=== PATIENT | male | born 1955 | race Caucasian/White ===

== ENCOUNTER → 2019-05-18 07:30 | Outpatient (CLI) | payer OTHER | END | disposition home or self-care (01) | LOC: D.HCCARDIO 07:30 | PROVIDERS: ATTEND Internal Medicine Cardiovascular Disease | DX: I20.9 Angina pectoris, unspecified (principal) ==

== ENCOUNTER 2019-06-17 07:32 | Outpatient (CLI) | payer OTHER ==
[~2019-06-17] VITALS: Ht 193 cm; Wt 125.0 kg
--- NOTE | ~2019-06-17 | HEMODYNAMI ---
PATIENT:GOSIA OWENS MEDICAL RECORD: [id number] : 55 LOCATION:[facility] ADMISSION DATE: 06/17/19 Generatedon:06/17/201911:00 Patient name: GOSIA OWENS Patient #: [id number] SSN: : 1955 Date of study: 06/17/2019 Page: Of Hemodynamic Procedure Report Patient Data Patient Demographics Procedure consent was obtained First Name: GOSIA Gender: Male Last Name: GRACIELA : 1955 Middle Initial: L Age: 63 year(s) Patient #: [id number] Race: Unknown Additional ID: [id number] Contact details Address: [address] State: [place] City: [place] Zip code: [address] Admission Admission Data Admission Date: 06/17/2019 Admission Time: 7:32 Procedure Procedure Types Cath Procedure Diagnostic Procedure LHC LHC w/Coronaries PCI Procedure Coronary Stent Coronary Stent Initial x2 Hemochron ACT Test Procedure Description Procedure Date Procedure Date: 06/17/2019 Procedure Start Time: 10:15 Procedure End Time: 10:55 Procedure Staff Name Function Helio Matias MD Performing Physician Tyrell Sparks RT Monitor Divya Gill RN Nurse Felix Contreras RT Scrub Procedure Data Cath Procedure Fluoroscopy Diagnostic fluoroscopy Total fluoroscopy Time: time: 13.7 min 13.7 min Diagnostic fluoroscopy Total fluoroscopy dose: dose: 1068.89 mGy 1068.89 mGy Contrast Material Contrast Material Type Amount (ml) Isovue 370 249 Entry Location Entry Primary Successful Side Size Upsize Upsize Entry Closure Mahoney ccessful Closure Location (Fr) 1 (Fr) 2 (Fr) Remarks Device Remarks Radial Right 6 Fr Mechanical artery Short Compression Estimated blood loss: 10 ml Diagnostic catheters Device Type Used For End Catheter Placement DIAGNOSTIC [place] 110cm 5 Procedure Fr catheter (004146) Procedure Complications No complications Procedure Medications Medication Administration Route Dosage 0.9% NaCl I.V. 100 ml/hr Oxygen NC 2 l/min Lidocaine 2% added to field 20 Heparin Flush Bag added to field 2 bags (1000units/500ml NS) Radial Cocktail added to field 1 syringe (Verapamil 2mg/Nitro 400mcg/Heparin 1500units) Versed I.V. 2 mg Fentanyl I.V. 100 mcg Heparin Bolus I.V. 4000 units Integrilin (Bolus I.V. 11.3 ml 2mg/ml) Integrilin (Bolus wasted 8.7 ml 2mg/ml) Versed I.V. 2 mg Fentanyl I.V. 100 mcg Versed I.V. 1 mg Versed I.V. 1 mg Plavix P.O. 600 mg Hemodynamics Rest Heart Rate: 66 (bpm) Pressure Samples Time Site Value (mmHg) Purpose Heart Use Rate(bpm) 10:20 AO 121/81(101) Snapshot 75 Snapshots Pre Cath Intra NCS Post Cath Vital Signs Time Heart Resp SPO2 etCO2 NIBP (mmHg) Rhythm Pain Sedation Rate (ipm) (%) (mmHg) Status Level (bpm) 9:51:40 66 17 99 16.7 151/77(107) NSR (Missing) 10(A) 9:56:03 64 14 99 11.4 154/78(104) NSR (Missing) 10(A) 10:00:27 67 16 97 12.9 152/77(113) NSR (Missing) 10(A) 10:04:49 69 10 98 14.4 162/81(122) NSR (Missing) 10(A) 10:09:09 70 13 90 0 155/80(103) NSR (Missing) 10(A) 10:13:31 63 15 94 18.2 146/70(104) NSR (Missing) 10(A) 10:17:56 69 12 95 16.7 149/68(120) NSR (Missing) 10(A) 10:22:22 67 18 92 3.8 120/62(93) NSR (Missing) 9(A) 10:26:36 71 19 95 14.4 126/65(87) NSR (Missing) 9(A) 10:31:45 76 13 97 30.4 143/75(111) NSR (Missing) 9(A) 10:36:03 75 11 96 12.1 157/78(120) NSR (Missing) 9(A) 10:40:21 70 14 96 28.8 152/73(102) NSR (Missing) 9(A) 10:44:39 70 13 97 31.1 151/75(101) NSR (Missing) 9(A) 10:49:02 73 13 97 26.6 166/80(123) NSR (Missing) 9(A) 10:53:24 72 17 99 31.1 167/94(135) NSR (Missing) 10(A) Medications Time Medication Route Dose Verified Delivered Reason Notes Effectiveness by by 9:50:41 0.9% NaCl I.V. 100 Divya Divya used for ml/hr Jairo Jairo rag boiler RN 9:50:52 Oxygen NC 2 l/min Divya Divya for low 02 Jairo Jairo sats RN RN 9:51:17 Lidocaine 2% added 20ml Helio Divya for local to vial Polly Gill anesthetic field RN 9:51:30 Heparin Flush added 2 bags Helio Divya used for Bag to Polly Gill procedure (1000units/500ml field RN NS) 9:55:54 Radial Cocktail added 1 Helio Divya for (Verapamil to syringe Polly Gill vasodilation 2mg/Nitro field RN 400mcg/Heparin 1500units) 10:17:50 Versed I.V. 2 mg Helio Divya for sedation Polly Gill RN 10:17:59 Fentanyl I.V. 100 mcg Helio Divya for sedation Polly Gill RN 10:20:02 Heparin Bolus I.V. 4000 Helio Divya used for verifi ed units Polly Gill procedure with dr ZHANNA matias 10:22:29 Integrilin I.V. 11.3 ml Helio Divya used for verifi ed (Bolus 2mg/ml) Polly Gill procedure with dr ZHANNA matias 10:23:56 Integrilin wasted 8.7 ml Helio Divya used for verifi ed (Bolus 2mg/ml) Polly Gill procedure with dr ZHANNA matias 10:25:16 Versed I.V. 2 mg Helio Divya for sedation Polly Gill RN 10:25:26 Fentanyl I.V. 100 mcg Helio Divya for sedation Tauth MD Jairo RN 10:30:34 Versed I.V. 1 mg Helio Divya for sedation Polly Gill RN 10:35:32 Versed I.V. 1 mg Helio Divya for sedation Polly Gill RN 10:53:30 Plavix P.O. 600 mg Helio Divya Per Polly Gill physician loom operator apprentice Log Time Note 9:23:35 Tyrell MENA(R) sent for patient. Start room use. 9:23:36 Time tracking: Regular hours (M-F 7:00 - 5:00) 9:23:41 Plan of Care:Hemodynamics will remain stable., Cardiac rhythm will remain stable., Comfort level will be maintained., Respiratory function will remain adequate., Patient/ family verbilizes understanding of procedure., Procedure tolerated without complication., Recovers from procedure without complications.. 9:45:27 Patient received from Pre/Post Procedure Room to [facility] 3 Alert and oriented. Tansferred to table in Supine position. 9:45:30 Signed procedure consent form obtained from patient. 9:45:30 Warm blankets applied, and yuriy hugger turned on for patient comfort. 9:45:31 Correct patient and procedure confirmed by team. 9:45:31 ECG and BP/O2 sat monitors applied to patient. 9:50:26 Vital chart was started 9:50:41 0.9% NaCl 100 ml/hr I.V. was administered by Divya Gill RN; used for procedure; Verbal order read back and verified. 9:50:52 Oxygen 2 l/min NC was administered by Divya Gill RN; for low 02 sats; Verbal order read back and verified. 9:51:17 Lidocaine 2% 20ml vial added to field was administered by Divya Gill RN; for local anesthetic; Verbal order read back and verified. 9:51:30 Heparin Flush Bag (1000units/500ml NS) 2 bags added to field was administered by Divya Gill RN; used for procedure; Verbal order read back and verified. 9:55:54 Radial Cocktail (Verapamil 2mg/Nitro 400mcg/Heparin 1500units) 1 syringe added to field was administered by Divya Gill RN; for vasodilation; Verbal order read back and verified. 9:58:48 Baseline sample Acquired. 9:58:54 Rhythm: sinus rhythm 9:58:55 Full Disclosure recording started 9:59:19 H&P Date Dictated: 05/30/2019 Within 30 days and on chart., H&P Addendum completed by physician on day of procedure. (MUST COMPLETE FOR ALL OUTPATIENTS). 9:59:20 Pre-procedure instructions explained to patient. 9:59:21 Pre-op teaching completed and patient verbalized understanding. 9:59:24 Family in patients room. 9:59:25 Patient NPO since Midnight. 9:59:26 Is the patient allergic to Iodine/contrast media? Yes. 9:59:27 Was the patient premedicated? Yes 9:59:29 Is patient on blood thinner?No 10:00:21 ACC The patient was administered the following blood thiners within the last 24 hours: None 10:00:25 Patient diabetic? Yes. 10:00:27 If diabetic: On Metformin? Yes 10:00:29 If on Metformin: Last Dose? 06/15/2019 10:01:23 Previous problem with sedation/anesthesia? No ? 10:01:26 Snore? Yes 10:01:27 Sleep apnea? No 10:01:28 Deviated septum? No 10:01:28 Opens mouth fully? Yes 10:01:29 Sticks out tongue? Yes 10:01:31 Airway obstruction? No ? 10:01:33 Dentures? No ? 10:01:35 Pre procedure: right dorsailis pedis pulse 1+ Palpable, but thready & weak; easily obliterated 10:01:36 Modified Jasvir's test Ulnar < 7 seconds 10:01:39 Patient pain scale 0/10 ?. 10:01:46 IV patent on arrival in left hand with 0.9% NaCl at [facility]. 10:01:56 Lab results completed and on chart. 10:02:19 Stress Test: yes; abnormal inferior and apical 10:02:36 Zero performed for pressure channel P1 10:02:38 Zero performed for pressure channel P1 10:08:37 Risk of Mortality: 0.1 10:08:40 Risk of blood transfusion: 0.1 10:08:43 Risk of CARMEN: 0.6 10:08:49 Right Radial & Right Groin area was prepped with chlora-prep and draped in sterile fashion 10:08:51 Alarms reviewed by Pedro Mendez. 10:08:51 Sharps counted by scrub and verified by R.N. 10:08:55 Use device set Radial Dx or PCI 10:08:57 Tegaderm 4 x 4 (1626W) opened to sterile field. 10:08:58 ACIST Syringe (76883) opened to sterile field. 10:08:59 Medline Cath Pack ([id number]) opened to sterile field. 10:08:59 Bag Decanter (2002S) opened to sterile field. 10:08:59 ACIST Hand Control (81840) opened to sterile field. 10:09:00 ACIST Manifold (28256) opened to sterile field. 10:09:00 MBrace Wrist Support ([id number]) opened to sterile field. 10:09:03 SHEATH 6FR RAIN (9893635) opened to sterile field. 10:09:07 EMERALD Guide Wire (505-919) opened to sterile field. 10:09:58 1) 90+ Normal kidney functon but urine findings or structural abnormalities or genetic trait point to kidney disease. 10:10:01 Maximum allowable contrast dose (3.7 X eGFR X 0.75)250 ml. 10:13:08 Physician arrived 10:13:08 --------ALL STOP TIME OUT------ 10:13:09 Final Timeout: patient, procedure, and site verified with staff and physician. All members of the team are in agreement. 10:13:11 Right Radial & Right Groin site verified by team. 10:13:15 Fire Safety Assessment: A--An alcohol-based skin anteseptic being used preoperatively., C--Open oxygen or nitrous oxide is being used., D--An ESU, laser, or fiber-optic light is being used. 10:13:18 Physical assessment completed. ASA score P 2 - A patient with mild systemic disease as per Helio Matias MD. 10:13:22 Sedation plan: IV Moderate Sedation Medication:Versed, Fentanyl 10:15:44 Procedure started. 10:15:53 Local anesthetic to right radial artery with Lidocaine 2% by Helio Matias MD.INITIAL ACCESS ONLY 10:16:53 A 6 Fr Short sheath was inserted into the Right Radial artery 10:17:12 A DIAGNOSTIC [place] 110cm 5 Fr catheter ([id number]) was advanced over the wire and used for Procedure. 10:17:50 Versed 2 mg I.V. was administered by Divya Gill RN; for sedation; Verbal order read back and verified. 10:17:59 Fentanyl 100 mcg I.V. was administered by Divya Gill RN; for sedation; Verbal order read back and verified. 10:18:34 LV angiography performed. 10:18:37 LV gram done using WEINSTEIN 10:18:41 EF : 50 % 10:18:45 Injector settings: Ml/sec: 5, Volume: 15, 10:19:12 Use device set TAU PCI 10:19:36 LCA angiography performed. 10:20:00 ACCDominant side:Left 10:20:02 Heparin Bolus 4000 units I.V. was administered by Divya Gill RN; used for procedure; verified with dr matias Verbal order read back and verified. 10:20:47 RCA angiography performed. 10:20:52 Catheter removed. 10:21:54 CHOICE PT Extra Support 182cm wire ([id number]) opened to sterile field. 10:21:56 INFLATOR Merit BasixCompak (TI1558) opened to sterile field. 10:22:29 Integrilin (Bolus 2mg/ml) 11.3 ml I.V. was administered by Divya Gill RN; used for procedure; verified with dr matias Verbal order read back and verified. 10:22:45 GUIDE 6FR AR 2.0 SH catheter ([id number]) opened to sterile field. 10:22:50 GUIDE 6FR XBLAD 3.5 catheter ([id number]) opened to sterile field. 10:23:03 6 Fr AR 2 SH guide catheter was inserted over the wire 10:23:12 CPTXS wire advanced. 10:23:15 [place] Verrata Plus pressure wire (68393E) opened to sterile field. 10:23:56 Integrilin (Bolus 2mg/ml) 8.7 ml wasted was administered by Divya Gill RN; used for procedure; verified with dr matias Verbal order read back and verified. 10:24:06 Wire advanced across lesion. 10:24:11 Pre PCI Site: [place] mRCA has 99% stenosis. 10:24:13 ACC Pre-intervention ANDREW Flow is 3. 10:25:16 Versed 2 mg I.V. was administered by Divya Gill RN; for sedation; Verbal order read back and verified. 10:25:26 Fentanyl 100 mcg I.V. was administered by Divya Gill RN; for sedation; Verbal order read back and verified. 10:25:49 Inflate balloon Inflation number: 1 A Mozec Rx 2.5 x 20 balloon was prepped and advanced across the Mid RCA 99, then inflated to 11 MICHELLE for 0:10 (min:sec) -1. 10:25:58 Inflation number: 2 The Mozec Rx 2.5 x 20 balloon was reinflated across the Mid RCA 99, to 11 MICHELLE for 0:10 (min:sec) -1. 10:27:21 Balloon removed over the wire. 10:27:46 Place stent Inflation Number: 3 A RICHARD RX 2.5 x 38 stent ([id number]) was prepped and advanced across the Mid RCA 99. The stent was deployed at 13 MICHELLE for 0:10 (min:sec) 0. 10:28:18 Stent catheter was removed intact over wire. 10:29:19 Place stent Inflation Number: 4 A RICHARD RX 2.5 x 18 stent ([id number]) was prepped and advanced across the Mid RCA 0. The stent was deployed at 15 MICHELLE for 0:10 (min:sec) . 10:29:56 Stent catheter was removed intact over wire. 10:30:34 Versed 1 mg I.V. was administered by Divya Gill RN; for sedation; Verbal order read back and verified. 10:31:10 Place stent Inflation Number: 5 A RICHARD RX 2.5 x 08 stent ([id number]) was prepped and advanced across the Mid RCA 99. The stent was deployed at 17 MICHELLE for 0:10 (min:sec) . 10:31:15 Stent catheter was removed intact over wire. 10:31:15 Wire removed. 10:31:16 Guide catheter removed. 10:31:18 ACC Post-intervention ANDREW Flow is 3. 10:31:25 Post PCI Site: [place] mRCA has 0% stenosis. 10:32:34 6 Fr XBLAD 3.5 guide catheter was inserted over the wire 10:35:32 Versed 1 mg I.V. was administered by Divya Gill RN; for sedation; Verbal order read back and verified. 10:36:51 FFR/IFR wire advanced. 10:39:07 ACT drawn and resulted at 213 seconds. (normal therapeutic range 180-240 seconds). 10:44:43 Wire removed. Unable to wire LAD with IFR wire. Attempting to wire LAD with CPTXS wire. 10:45:32 Wire advanced across lesion. 10:45:48 ACC Pre-intervention ANDREW Flow is 3. 10:46:09 Pre PCI Site: [place] pLAD has 80% stenosis. 10:47:34 Place stent Inflation Number: 1 A RICHARD RX 3.0 x 12 stent ([id number]) was prepped and advanced across the Prox LAD 80. The stent was deployed at 21 MICHELLE for 0:10 (min:sec) 0. 10:47:58 Stent catheter was removed intact over wire. 10:49:21 Inflate balloon Inflation number: 2 A NC EUPHORA 3.5 x 8 balloon ([id number]) was prepped and advanced across the Prox LAD 0, then inflated to 23 MICHELLE for 0:10 (min:sec) . 10:49:48 Balloon removed over the wire. 10:49:49 Wire removed. 10:49:49 Guide catheter removed. 10:49:56 ACC Post-intervention ANDREW Flow is 3. 10:50:03 Post PCI Site: [place] pLAD has 0% stenosis. 10:50:26 ZEPHYR REGULAR TR BAND (540175) opened to sterile field. 10:50:43 Sheath removed intact; hemostasis achieved with Mechanical Compression to the Right Radial artery. 10:50:45 Procedure ended.(Physican Out) 10:51:41 Fluoroscopy time 13.70 minutes. 10:51:51 Flurop Dose total: 1068.89 10:51:51 Fluoroscopy dose: 1068.89 mGy 10:52:01 Dose Area Product 7474.20 mGy/cm. 10:52:06 Contrast amount:Isovue 370 249ml. 10:52:08 Maximum allowable dose exceeded? No. 10:52:10 Sharps counted by scrub and verified by R.N. 10:52:17 [place] band inflated with 15cc of air. 10:52:19 Insertion/operative site no bleeding no hematoma. 10:52:20 Post Procedure Pulses reassessed and unchanged 10:52:22 Post-procedure physical assessment completed. ASA score P 2 - A patient with mild systemic disease as per Helio Matias MD. 10:52:25 Post procedure rhythm: unchanged. 10:52:27 Estimated blood loss: 10 ml 10:52:29 Post procedure instruction explained to patient.Patient verbalizes understanding. 10:52:29 Patient needs reinforcement of post procedure teaching. 10:52:45 Procedure type changed to Cath procedure, Diagnostic procedure, LHC, C w/Coronaries, PCI procedure, Coronary Stent, Coronary Stent Initial x2, Hemochron ACT Test 10:53:30 Plavix 600 mg P.O. was administered by Divya Gill RN; Per physician; Verbal order read back and verified. 10:54:58 Procedure and supply charges have been captured, reviewed, submitted and are correct. 10:55:00 Procedure Complication : No complications 10:55:04 Vital chart was stopped 10:55:07 [facility] Findings: MVD- PCI performed (see procedure note) 10:55:09 Operative report dictated upon procedure completion. 10:55:09 See physician's report for complete and final results. 10:55:11 Report given to Pre/Post Procedure Room. 10:55:15 Patient transfered to Pre/Post Procedure Room with Stretcher. 10:55:17 Procedure ended. 10:55:17 Full Disclosure recording stopped 10:55:33 End room use (Document Last) 10:56:42 End room use (Document Last) 10:57:41 End room use (Document Last) Intervention Summary Intervention Notes Time ActionType Lesion and Equipment Used Action# Pressure Duration Attributes 10:25:49 Inflate Mid RCA Mozec Rx 2.5 x 1 11 00:10 balloon 20 balloon 10:25:58 Reinflate Mid RCA Mozec Rx 2.5 x 2 11 00:10 balloon 20 balloon 10:27:46 Place stent Mid RCA RICHARD RX 2.5 x 3 13 00:10 38 stent ([id number]) 10:29:19 Place stent Mid RCA RICHARD RX 2.5 x 4 15 00:10 18 stent ([id number]) 10:31:10 Place stent Mid RCA RICHARD RX 2.5 x 5 17 00:10 08 stent ([id number]) 10:47:34 Place stent Prox LAD RICHARD RX 3.0 x 1 21 00:10 12 stent ([id number]) 10:49:21 Inflate Prox LAD NC EUPHORA 3.5 2 23 00:10 balloon x 8 balloon ([id number]) Device Usage Item Name Manufacture Quantity Catalog Number Hospital Part Current Minimal Lot# / Charge Number Stock Stock Serial# Code Tegaderm 4 x 4 3M 1 1626W [id number] [id number] [id number] 5 (1626W) ACIST Syringe Acist 1 20044 788390 578098 970708 20 (39667) Medical Systems Inc Medline Cath Medline 1 [id number] 393791 15176 798881 5 Pack ([id number]) Bag Decanter Microtek 1 2001S 131180 06521 154842 5 (2001S) Medical Inc. ACIST Hand Acist 1 03518 751430 216406 505145 5 Control Medical (40102) Systems Inc ACIST Manifold Acist 1 67143 110195 168966 996976 5 (02747) Medical Systems Inc MBrace Wrist Advanced 1 140-0250-00 300352 99607 048399 5 Support Vascular ([id number]) Dynamics SHEATH 6FR Cardinal 1 4814041 210892 3686378 442136 5 RAIN (2531739) [facility] EMERALD Guide Cardinal 1 502-455 587127 985880 369944 5 Wire (502-455) Health DIAGNOSTIC Terumo 1 85-1034 575269 583716 907639 5 [place] 110cm 5 Fr catheter (419124) CHOICE PT [place] 1 [id number] 881979 810014 817141 5 Extra Support Scientific 182cm wire ([id number]) INFLATOR Merit Merit 1 CF6354 933177 821896 589480 15 BasixVIPAARdcBeetle Beats Medical (KB2318) GUIDE 6FR AR Medtronic 1 [id number] 167285 89488 880573 1 2.0 SH catheter ([id number]) GUIDE 6FR Cardinal 1 [id number] 754490 504095 084277 10 XBLAD 3.5 Health catheter (78464163) Mozec Rx 2.5 x Cardinal 1 [id number] 955139 73166 274241 5 [id number] 20 balloon Health RICHARD RX 2.5 x Medtronic 1 [id number] 842232 3589371 253636 5 [id number] 38 stent ([id number]) RICHARD RX 2.5 x Medtronic 1 [id number] 452179 9788719 507189 5 [id number] 18 stent ([id number]) RICHARD RX 2.5 x Medtronic 1 [id number] 504458 3555438 849457 5 [id number] 08 stent ([id number]) RICHARD RX 3.0 x Medtronic 1 [id number] 864717 9686031 126464 5 [id number] 12 stent ([id number]) [place] EUPHORA 3.5 Medtronic 1 [id number] 382567 804558 827816 1 [id number] x 8 balloon ([id number]) ZEPHYR REGULAR Cardinal 1 967997 442071 5464592 705978 5 TR BAND Health (300880) [place] 1 80070Q 969571 [id number] 158273 5 Verrata Plus pressure wire (82752T) Signature Audit [place] Stage Time Signature Unsigned Intra-Procedure 06/17/2019 Tyrell Sparks 10:56:42 AM RT(R) Intra-Procedure 06/17/2019 Divya 10:57:41 AM Jairo CHAO Intra-Procedure 06/17/2019 Helio Matias 11:00:47 AM [place] [id number] [place] [address]
--- NOTE | ~2019-06-17 | OP ---
PATIENT NAME: GOSIA OWENS MEDICAL RECORD: [id number] :55 LOCATION:D.CAT ADMISSION DATE: SURGEON: NESTOR DE SANTIAGO MD DATE OF OPERATION: 06/17/2019 DATE OF SERVICE: 06/17/2019 PROCEDURES: 1. PTCA stent LAD. 2. PTCA stent RCA. 3. Left heart catheterization. 4. Selective coronary angiography. 5. Left ventriculogram. INDICATION: Angina, coronary artery disease, abnormal nuclear stress test. DESCRIPTION OF PROCEDURE IN DETAIL: After informed consent was obtained and after detailed explanation of risks, benefits as well as alternative therapies, the patient elected to proceed with angiogram and angioplasty. The right radial area was prepped and draped in normal sterile fashion. Right radial artery was cannulated via modified Seldinger technique with the placement of 6-Nepali sheath. All catheters exchanged through this sheath. FINDINGS: Left ventriculogram was performed in standard 30-degree WEINSTEIN view, reveals mild global hypokinesis, ejection fraction 40%. SELECTIVE CORONARY ANGIOGRAPHY: 1. Left main is with no significant angiographic disease. 2. Left circumflex has mild irregularities, but no flow-limiting stenosis. 3. The left anterior descending has 80% stenosis in the mid vessel. 4. The right coronary has 95% to 99% stenosis throughout the mid vessel. PTCA STENT OF THE RCA: The stent used was a 2.5 x 38, 2.5 x 8, 2.5 x 18, all Jose stents. Result was 0% residual stenosis. PTCA STENT OF THE LAD: We tried to advance an IFR wire; however, this would not go. Most likely, the stenosis was greater than 80%. We did stent it with a 3.0 x 12 [place] stent. This failed to fully expand it, however high pressure balloon taken to 23 atmospheres with a 3.5 expanded it fully. Result was 0% residual stenosis. OVERALL IMPRESSION: Successful percutaneous transluminal coronary angioplasty stent of the left anterior descending and right coronary artery going from 80% to 95% initial stenosis to 0% residual. TRANSINT:[id number] Voice Confirmation ID: [id number] DOCUMENT ID: [id number] OPERATIVE REPORT [id number] GOSIA OWENS NESTOR DE SANTIAGO MD CC: [id number] DICTATION DATE: 06/17/19 1054 CUSTOMER COMPLAINT SERVICE SUPERVISOR: 06/17/19 1518 DEP CLI 06/17/19 [facility] [address] [place] [address]
[2019-06-17] MEDS ORDERED: MOBIC7.5 MG PO (08:12)
[2019-06-17] MEDS ORDERED: ZOCOR40 MG PO (08:12)
[2019-06-17] MEDS ORDERED: ZIAC 10-6.25 MG1 TAB PO (08:12)
[2019-06-17] MEDS ORDERED: PIOGLITAZONE15 MG PO (08:13)
[2019-06-17] MEDS ORDERED: COZAAR25 MG PO (08:13)
[2019-06-17] MEDS ORDERED: TYLENOL W/CODEI1 TAB PO (08:14)
[2019-06-17] MEDS ORDERED: GLUCOPHAGE1000 MG PO (08:14)
[2019-06-17] MEDS ORDERED: JANUVIA100 MG PO (08:14)
[2019-06-17] MEDS ORDERED: GABAPENTIN300 MG PO (08:15)
[2019-06-17] MEDS ORDERED: BAYER CHEWABLE81 MG PO (08:16)
[2019-06-17] MEDS ORDERED: VALIUM5 MG PO (08:16)
[2019-06-17] MEDS ORDERED: METHOCARBAMOL750 MG NG (08:16)
[2019-06-17] MEDS ORDERED: BIMATOPROST2.5 ML LEFT EYE (08:17)
[2019-06-17 08:35] VITALS: BP 146/68; Ht 193 cm; Wt 125.0 kg
[2019-06-17 08:59] LABS: BASOPHILS 0.1 % (0-2); EOSINOPHILS 0.1 % (0-7); HEMATOCRIT 39.6 % (42.0-54.0); HEMOGLOBIN 13.2 g/dL (13.5-17.5); IMMATURE GRANULOCYTES 0.2 % (0-5); LYMPHOCYTES 7.1 % (15-50); MCH 31.4 pg (26.0-34.0); MCHC 33.3 g/dL (31.0-37.0); MCV 94.1 fL (80.0-100.0); MEAN PLATELET VOLUME 9.9 fL (7.4-10.4); MONOCYTES 1.5 % (2-11); PLATELET COUNT 210 10x3/uL (130-400); RBC 4.21 10x6/uL (4.20-6.10); RDW 13.2 % (11.5-14.5); WBC 9.5 10x3/uL (4.8-10.8)
[2019-06-17 09:28] LABS: ALT (SGPT) 55 U/L (10-68); CALC OSMOLALITY 288 mosm/kg (275-300); CALCIUM 9.4 mg/dL (8.5-10.1); CARBON DIOXIDE 27.6 mmol/L (21.0-32.0); CHLORIDE - SERUM 105 mmol/L (98-107); CHOL - HDL RATIO 3.9 ratio (2.3-4.9); CHOLESTEROL, TOTAL 181 mg/dL (0-200); CREATININE - SERUM 0.9 mg/dL (0.6-1.3); GLUCOSE 224 mg/dL (74-106); HDL CHOLESTEROL 47 mg/dL (32-96); LDL CHOLESTEROL 130 mg/dL (0-100); LDL-HDL RATIO 2.8 ratio (1.5-3.5); SODIUM 139 mmol/L (136-145); TRIGLYCERIDE 24 mg/dL (30-200); UREA NITROGEN 24 mg/dL (7-18); eGFR NON AFRICAN AMERICAN > 90 mL/min (90-120)
[2019-06-17] MEDS ORDERED: PLAVIX75 MG PO (11:01)
--- NOTE | 2019-06-17 11:05 | NUR ---
PT RECEIVED VIA STRETCHER FROM PSYCH ARNP FOR RECOVERY. PT AWAKE BUT DROWSY, PT C/O DISCOMFORT ON R WRIST DUE TO PRESSURE BAND. DRESSING W SM AMOUNT BLEEDING NOTED. NO ACTIVE BLEEDING NOTED, NO S/S HEMATOMA. ARM PINK AND WARM, CAP REFILL BRISK. IV PATENT INFUSING VIA ORDERS PER L HAND. PT PLACED ON CARDIAC MONITORS, O2 ON VIA NC AT 2L. PT INSTRUCTED NOT TO USE R ARM HE VERBALIZED UNDERSTANDING. CALL LIGHT IN REACH, AT BS.
--- NOTE | 2019-06-17 11:30 | NUR ---
PT RESTING, Z BAND IN PLACE, NO S/S BLEEDING OR HEMATOMA NOTED. CAP REFILL BRISK. PT TOLERATING PO FLUIDS W/O NAUSEA. CALL LIGHT IN REACH, FAMILY AT BS. BP 181/93. ORDERS RECEIVED.
--- NOTE | 2019-06-17 12:03 | NUR ---
ZBAND IN PLACE, PT C/O TOO MUCH PRESSURE, 1CC AIR REMOVED FOR COMFORT. NO S/S HEMATOMA NOTED. CAP REFILL BRISK. 0.1 CLONIDINE GIVEN PER ORDERS FOR BP. CALL LIGHT IN REACH. SODA AND SANDWICH TRAY SERVED.
--- NOTE | 2019-06-17 12:35 | NUR ---
PT TOLERATED SANDWICH AND DRINK W/O NAUSEA. Z BAND AND IMMOBILIZER IN PLACE, NO BLEEDING OR S/S HEMATOMA NOTED. CAP REFILL BRISK. DR DE SANTIAGO AT , PROCEDURE RESULTS AND PLAN OF CARE DISCUSSED W PT AND . CALL LIGHT IN REACH. HR 75, BP 171/88, SAT 94.
--- NOTE | 2019-06-17 13:14 | NUR ---
PT RESTING COMFORTABLY, Z BAND IN PLACE NO BLEEDING OR S/S HEMATOMA NOTED. CAP REFILL BRISK. HR 78, BP 147/77, SAT 95 ON 2L/NC. PT DENIES PAIN OR NEEDS AT THIS TIME. CALL LIGHT IN REACH
--- NOTE | 2019-06-17 13:53 | NUR ---
4CC AIR REMOVED FROM Z BAND, NO BLEEDING OR S/S HEMATOMA NOTED. CAP REFILL BRISK. VSS. CALL LIGHT IN REACH, REMAINS AT BS.
--- NOTE | 2019-06-17 14:25 | NUR ---
3 ADD'L CC AIR REMOVED FROM Z BAND, NO BLEEDING OR S/S HEMATOMA NOTED. CAP REFILL BRISK. VSS. PT DENIES NEEDS AT THIS TIME.
--- NOTE | 2019-06-17 14:50 | NUR ---
2 ADD'L CC AIR REMOVED FROM Z BAND, NO BLEEDING NOTED. DISCHARGE INSTRUCTIONS REVIEWED W PT AND , BOTH VERBALIZED UNDERSTANDING. STRESSED IMPORTANCE OF GETTING PLAVIX FILLED AND STARTING TOMORROW. IV REMOVED W CATH INTACT, MONITORS REMOVED AND PT UP TO DRESS FOR DISCHARGE.
--- NOTE | 2019-06-17 14:55 | NUR ---
PT DISCHARGED VIA WC TO WAITING IN PRIVATE VEHICLE. PT HAD ALL BELONGINGS AND DISCHARGE INSTRUCTIONS.
--- NOTE | 2019-06-17 14:56 | NUR ---
REMAINING AIR AND Z BAND REMOVED W/O BLEEDING NOTED. 2X2 AND TEGADERM DRESSING APPLIED. IMMOBILIZER REPOSITIONED
== END 2019-06-17 14:55 | disposition home or self-care (01) ==
LOC: D.CATH 07:32
PROVIDERS: ATTEND Internal Medicine Interventional Cardiology
DX: I25.119 Atherosclerotic heart disease of native coronary artery with unspecified angina pectoris (principal); R94.30 Abnormal result of cardiovascular function study, unspecified; I10 Essential (primary) hypertension; E11.9 Type 2 diabetes mellitus without complications; E78.5 Hyperlipidemia, unspecified

== ENCOUNTER 2019-06-22 13:21 | Observation (INO) | payer OTHER ==
[~2019-06-22] VITALS: Ht 195.6 cm; Wt 125.0 kg
[~2019-06-22 13:21] MED LIST: BAYER CHEWABLE81 MG PO; BIMATOPROST2.5 ML LEFT EYE; COZAAR25 MG PO; GABAPENTIN300 MG PO; GLUCOPHAGE1000 MG PO; JANUVIA100 MG PO; METHOCARBAMOL750 MG NG; MOBIC7.5 MG PO; PIOGLITAZONE15 MG PO; PLAVIX75 MG PO; TYLENOL W/CODEI1 TAB PO; VALIUM5 MG PO; ZIAC 10-6.25 MG1 TAB PO; ZOCOR40 MG PO
--- NOTE | 2019-06-22 13:30 | NUR ---
FSBS= 117 MG/DL
[2019-06-22 14:04] LABS: CALC OSMOLALITY 284 mosm/kg (275-300); CALCIUM 9.7 mg/dL (8.5-10.1); CARBON DIOXIDE 28.4 mmol/L (21.0-32.0); CHLORIDE - SERUM 101 mmol/L (98-107); CREATININE - SERUM 1.3 mg/dL (0.6-1.3); POTASSIUM - SERUM 4.9 mmol/L (3.5-5.1); SODIUM 138 mmol/L (136-145); UREA NITROGEN 33 mg/dL (7-18); eGFR NON AFRICAN AMERICAN 59 mL/min (90-120)
[2019-06-22 14:10] LABS: BASOPHILS 0.2 % (0-2); EOSINOPHILS 3.1 % (0-7); HEMATOCRIT 40.7 % (42.0-54.0); HEMOGLOBIN 13.5 g/dL (13.5-17.5); IMMATURE GRANULOCYTES 1.2 % (0-5); LYMPHOCYTES 28.6 % (15-50); MCHC 33.2 g/dL (31.0-37.0); MCV 93.3 fL (80.0-100.0); MEAN PLATELET VOLUME 10.8 fL (7.4-10.4); MONOCYTES 12.6 % (2-11); NEUTROPHILS 54.3 % (40-80); PLATELET COUNT 211 10x3/uL (130-400); RBC 4.36 10x6/uL (4.20-6.10); RDW 13.3 % (11.5-14.5); WBC 9.4 10x3/uL (4.8-10.8)
[2019-06-22 14:14] LABS: GLUCOSE 129 mg/dL (74-106)
[2019-06-22 14:25] LABS: ALBUMIN 3.8 g/dL (3.4-5.0); ALKALINE PHOSPHATASE 41 U/L (46-116); ALT (SGPT) 48 U/L (10-68); BILIRUBIN - TOTAL 0.76 mg/dL (0.2-1.3); CKMB 2.6 U/L (0.0-3.6); CREATINE KINASE 120 UL (21-232); MAGNESIUM - SERUM 1.9 mg/dL (1.8-2.4); PROTEIN - SERUM 7.9 g/dL (6.4-8.2)
[2019-06-22 14:28] LABS: TROPONIN-I 1.571 ng/mL (0.000-0.060)
[2019-06-22 15:06] LABS: APTT 25.7 SECONDS (22.8-39.4); INR 0.91 (0.85-1.17); PROTIME 11.8 SECONDS (11.6-15.0)
--- NOTE | 2019-06-22 16:45 | NUR ---
OK TO STOP NS BOLAS AT 300CC AND START INFUSION AT 100/HR PER RALPH AMANDA JESUS
--- NOTE | 2019-06-22 18:07 | NUR ---
RECEIVED PT TO ROOM 2108 VIA WHEELCHAIR, PT ACCOMPANIED BY DAUGHTER. PT A/O X4, RESP EVEN AND NONLABORED ON RA. RT HAND IV INFUSING NS AT 100CC/HR. ORIENTED PT TO ROOM AND CALL LIGHT, INFORMED HIM THAT HE NEEDS TO CALL FOR ASSISTANCES. WILL ASSESS PT AND START PLAN OF CARE.
[2019-06-22] MEDS ORDERED: PIOGLITAZONE15 MG PO (18:09)
[2019-06-22 18:37] VITALS: BP 127/60; BMI 32.7
[2019-06-22 20:00] VITALS: BP 163/89
[2019-06-23] VITALS: BP 162/78
--- NOTE | 2019-06-23 02:33 | NUR ---
PT LYING IN BED RESTING WITH EYES CLOSED. EASILY AROUSED DURING VERBAL STIMULI. NO SIGNS OR SYMPTOMS OF DISTRESS. RESPIRATIONS EVEN AND UNLABORED. PT WAS CONCERNED THAT HE HADNT TAKEN ANY HOME MEDICATIONS. HOME MEDICATIONS RESTARTED EXCEPT FOR BLOOD SUGAR MEDICATION. B/P 162/78. PT IS NPO AT MIDNIGHT. 73 SINUS RYTHUM ON TELEMETRY. UP WITH ASSISTANCE. PT COMPLAINS OF NO PAIN AT THIS TIME. CALL LIGHT WITHIN REACH, BED IN LOWEST POSITON. PT ADVISED TO CALL FOR HELP WHEN GETTING OUT OF BED. WILL CONTINUE TO MONITOR
--- NOTE | 2019-06-23 03:05 | NUR ---
I have reviewed this patient and I concur with the Shift Assessment completed by the Licensed Practical Nurse today this shift.
[2019-06-23 04:00] VITALS: BP 138/78
[2019-06-23 05:08] LABS: CALC OSMOLALITY 282 mosm/kg (275-300); CALCIUM 8.8 mg/dL (8.5-10.1); CARBON DIOXIDE 24.9 mmol/L (21.0-32.0); CHLORIDE - SERUM 103 mmol/L (98-107); GLUCOSE 160 mg/dL (74-106); POTASSIUM - SERUM 4.6 mmol/L (3.5-5.1); SODIUM 137 mmol/L (136-145); UREA NITROGEN 28 mg/dL (7-18)
[2019-06-23 05:14] LABS: HEMATOCRIT 37.2 % (42.0-54.0); HEMOGLOBIN 12.2 g/dL (13.5-17.5); MCH 30.5 pg (26.0-34.0); MCHC 32.8 g/dL (31.0-37.0); MEAN PLATELET VOLUME 10.3 fL (7.4-10.4); PLATELET COUNT 229 10x3/uL (130-400); RDW 13.3 % (11.5-14.5); WBC 7.3 10x3/uL (4.8-10.8)
[2019-06-23 05:18] LABS: CREATININE - SERUM 0.8 mg/dL (0.6-1.3); eGFR NON AFRICAN AMERICAN > 90 mL/min (90-120)
--- NOTE | 2019-06-23 07:30 | NUR ---
A/A/OX4. DENIES ANY PAIN AT PRESENT TIME AND VOICES NO REQUESTS. ASSESSMENT COMPLETED AND WILL CONTINUE POC. IV PATENT AND INFUSING TO RIGHT HAND WITHOUT REDNESS OR EDEMA NOTED AT SITE. STILL SOME BRUISING TO RIGHT WRIST FROM BAND FOLLOWING STENTS LAST WEEK. PULSES PALP. DENIES ANY DIZZINESS OR LIGHT HEADEDNESS AT THIS TIME.
[2019-06-23 08:54] LABS: EOSINOPHILS 1 % (0-7); LYMPHOCYTES 34 % (15-50); MONOCYTES 11 % (2-11); NEUTROPHILS 54 % (40-80); PLATELET ESTIMATE NORMAL; SMUDGE CELLS 1+
[2019-06-23 10:45] VITALS: Ht 195.6 cm; Wt 125.0 kg
[2019-06-23 12:07] VITALS: BP 140/71
[2019-06-23 12:14] LABS: CKMB 1.3 U/L (0.0-3.6); CREATINE KINASE 67 UL (21-232)
--- NOTE | 2019-06-23 15:23 | NUR ---
I have reviewed this patient and I concur with the Shift Assessment completed by the Licensed Practical Nurse today this shift.
[2019-06-23 16:30] VITALS: BP 112/50
[2019-06-23 18:34] LABS: CKMB 1.2 U/L (0.0-3.6)
[2019-06-23 18:35] LABS: TROPONIN-I 0.883 ng/mL (0.000-0.060)
[2019-06-23 18:45] LABS: CREATINE KINASE 71 UL (21-232)
--- NOTE | 2019-06-23 19:48 | NUR ---
EVENING ROUNDS COMPLETE, PT SITTING UP IN BED, NO SIGNS OF DISTRESS. FAMILY AT BEDSIDE. AAOX4. PT DENIES ANY NEEDS AT THIS TIME. CL IN REACH, BED IN LOWEST POSITION.
[2019-06-23 20:00] VITALS: BP 134/70
--- NOTE | 2019-06-23 21:48 | NUR ---
PT CALLED BUNDLE HELPER COMPLAINING THAT NO ONE HAD BROUGHT HIM LINENS OR PERSONAL CARE ITEMS. WHEN THIS NURSE WAS IN THE ROOM GIVING EVENING MEDS, PT STATED "IM REALLY STOCKING UP ON EVERYTHING BETWEEN ALL OF THESE HOSPITAL VISITS, EXCEPT SHAMPOO." THIS NURSE ASKED PT IF HE WOULD LIKE SOME PERSONAL CARE ITEMS AND THAT I COULD GO GRAB THEM RIGHT NOW. PT REPLIED "NO ITS OK, MY BROGHT ME A WHOLE BAG OF STUFF, I JUST SHAVED AND WASHED MY HAIR A LITTLE BIT AGO." THIS NURSE EXPLAINED THAT IF HE NEEDS ANYTGHING ALL HE HAS TO DO IS ASK. WHEN THIS NURSE TOOK A BAG OF PERSONAL CARE ITEM INTO ROOM AFTER HOUSE SUPERVISORS CALL, PT STATED HE DIDNT REMEMBER OUR CONVERSATION AT ALL. PT STATED HE HAS NO OTHER NEEDS AT THIS TIME.
[2019-06-23 23:00] VITALS: BP 148/65
[2019-06-23 23:29] LABS: CKMB 1.2 U/L (0.0-3.6); CREATINE KINASE 63 UL (21-232)
[2019-06-23 23:31] LABS: TROPONIN-I 1.027 ng/mL (0.000-0.060)
[2019-06-24 03:50] VITALS: BP 111/52
[2019-06-24 05:06] LABS: BASOPHILS 0.3 % (0-2); EOSINOPHILS 4.3 % (0-7); HEMOGLOBIN 11.6 g/dL (13.5-17.5); IMMATURE GRANULOCYTES 0.7 % (0-5); LYMPHOCYTES 35.1 % (15-50); MCHC 33.1 g/dL (31.0-37.0); MCV 93.6 fL (80.0-100.0); MONOCYTES 14.8 % (2-11); NEUTROPHILS 44.8 % (40-80); PLATELET COUNT 224 10x3/uL (130-400); RBC 3.74 10x6/uL (4.20-6.10); RDW 13.3 % (11.5-14.5); WBC 7.5 10x3/uL (4.8-10.8)
[2019-06-24 05:41] LABS: CALC OSMOLALITY 281 mosm/kg (275-300); CALCIUM 8.4 mg/dL (8.5-10.1); CARBON DIOXIDE 25.6 mmol/L (21.0-32.0); CHLORIDE - SERUM 104 mmol/L (98-107); CREATININE - SERUM 0.8 mg/dL (0.6-1.3); GLUCOSE 151 mg/dL (74-106); POTASSIUM - SERUM 4.1 mmol/L (3.5-5.1); SODIUM 138 mmol/L (136-145); UREA NITROGEN 21 mg/dL (7-18); eGFR NON AFRICAN AMERICAN > 90 mL/min (90-120)
--- NOTE | 2019-06-24 07:10 | NUR ---
REPORT RECEIVED FROM PAIN MANAGEMENT SPECIALIST AND PATIENT CARE ASSUMED. PATIENT LAYING IN BED AWAKE, ALERT AND ORIENTED X 4 . PATIENT DENIES ANY NEEDS OR PAIN. PATIENT IS STABLE AND VSS. WILL CONTINUE WITH PLAN OF CARE. SR UP X 2 BED IN LOW POSITION AND CALL LIGHT IN REACH.
[2019-06-24 09:50] VITALS: BP 135/45
[2019-06-24 10:09] LABS: APPEARANCE CLEAR (CLEAR); BILIRUBIN NEGATIVE (NEGATIVE); COLOR YELLOW (YELLOW); GLUCOSE 500 mg/dL (NEGATIVE); KETONE NEGATIVE (NEGATIVE); NITRITE NEGATIVE (NEGATIVE); PROTEIN NEGATIVE (NEGATIVE); UROBILINOGEN NORMAL (NORMAL)
--- NOTE | 2019-06-24 10:26 | NUR ---
ORTHOSTATIC VS PER ORDER: LAYING 135/45, SITTING 149/84 AND STANDING 128/61. SHARED INFO WITH ESTHER WATSON.
--- NOTE | 2019-06-24 11:26 | NUR ---
SPOKE WITH DR SHAFFER ON PHONE. DR SHAFFER STATES THAT PATIENT CAN BE DC TO HOME.
[2019-06-24 12:14] VITALS: BP 146/67
--- NOTE | 2019-06-24 13:20 | NUR ---
PATIENT IS STABLE AND VSS. PATIENT DENIES ANY NEEDS OR PAIN. ORDERS RECEVIED FOR DC. WRITTEN AND VERBAL INSTRUCTIONS GIVEN . PATIENT VERBALIZED UNDERSTANDING AND SIGNED DC INSTRUCTIONS. IV DCD WITHOUT DIFFICULTY WITH ENTIRE CATHETER INTACT. PATIENT IS DC TO HOME FOR SELF CARE. PATIENT TO FRONT TO VIA WC ACCOMPANIED BY HOSPITAL STAFF TO PRIVATE CAR DRIVEN BY FAMILY MEMBER.
--- NOTE | 2019-06-24 14:07 | MORECARE ---
CASE MANAGEMENT DISCHARGE SUMMARY PATIENT: GOSIA OWENS UNIT: [id number] ADM DATE: 06/22/19 AGE: 63 : 55 SEX: M ROOM/BED: D.2105 AUTHOR: SAEED MANCILLA PHYSICIAN: REFERRING PHYSICIAN: CL HERRING MD DATE OF SERVICE: 06/24/19 Discharge Plan Patient Name: GOSIA OWENS Facility: [facility]:[place] : 1955 Planned Disposition: Home Anticipated Discharge Date: 06/24/19 Discharge Date: Expected LOS: 2 Initial Reviewer: [email or web address] Initial Review Date: 06/24/2019 Generated: 06/24/19 3:07 pm Patient Name: GOSIA OWENS Page [phone] at 1407 All edits/amendments must be made on the electronic document DICTATION DATE: 06/24/191406 LOGISTICS VICE PRESIDENT: ARI 06/24/19 140 RPT#: [id number] DC DATE: STATUS: ADM IN [facility] [address] [place] [address] END OF REPORT
== END 2019-06-24 13:20 | disposition home or self-care (01) ==
LOC: D.ER 13:21 → D.M2 15:21 → OBSVTIME 15:58 → D.M2 06-24 13:20
PROVIDERS: Family Medicine; ADMIT Internal Medicine Nephrology; ATTEND Internal Medicine Nephrology
DX: I95.2 Hypotension due to drugs (principal); R55 Syncope and collapse; N17.9 Acute kidney failure, unspecified; D64.9 Anemia, unspecified; T46.5X5A Adverse effect of other antihypertensive drugs, initial encounter; I10 Essential (primary) hypertension; E78.5 Hyperlipidemia, unspecified; I25.10 Atherosclerotic heart disease of native coronary artery without angina pectoris; E11.40 Type 2 diabetes mellitus with diabetic neuropathy, unspecified; G89.29 Other chronic pain; M54.9 Dorsalgia, unspecified; H40.9 Unspecified glaucoma

== ENCOUNTER 2020-11-15 17:23 | Emergency (ER) | payer OTHER ==
[~2020-11-15] VITALS: Ht 195.6 cm; Wt 130.9 kg
[2020-11-15 17:33] VITALS: Ht 195.6 cm; Wt 130.9 kg
[2020-11-15 18:49] LABS: INR 1.12 (0.85-1.17); PROTIME 13.4 SECONDS (11.6-15.0)
[2020-11-15 18:50] LABS: D-DIMER-QUANTITATIVE 0.93 ug/mLFEU (0.20-0.54)
[2020-11-15 20:15] VITALS: BP 167/88
== END 2020-11-15 20:15 | disposition home or self-care (01) ==
LOC: D.ER 17:23
PROVIDERS: Emergency Medicine
DX: R60.0 Localized edema (principal); E11.9 Type 2 diabetes mellitus without complications; Z79.84 Long term (current) use of oral hypoglycemic drugs